=== PATIENT | male | born 2000 | race Two or more races ===

== ENCOUNTER → 2019-03-01 | Outpatient (REF) | payer OTHER | LOC: M SFHCLERA 14:14 | PROVIDERS: ATTEND Physician Assistant | DX: J02.9 Acute pharyngitis, unspecified (principal) ==

== ENCOUNTER 2019-10-03 10:01 | Inpatient (IN) | payer OTHER, SELFPAY ==
[~2019-10-03] VITALS: Ht 177.8 cm; Wt 88.3 kg
[2019-10-03] MEDS ORDERED: ISOVUE-370 76% 100ML VIAL As Ordered ONE (10:41)
[2019-10-03 10:45] LABS: HEMATOCRIT 46.1 % (42.0-52.0); HEMOGLOBIN 15.2 g/dl (13.5-17.5); MEAN CORPUSCULAR HEMOGLOBIN 28.7 pg (27.0-33.0); PLATELET COUNT, AUTOMATED 282 10^3/uL (150-450); WHITE BLOOD COUNT 11.3 10^3/uL (4.0-10.0)
[2019-10-03 11:21] LABS: ALBUMIN 4.1 GM/DL (3.2-5.2); ALT/SGPT 25 U/L (12-78); BILIRUBIN,DIRECT 0.2 MG/DL (0.0-0.2); BILIRUBIN,TOTAL 0.6 MG/DL (0.2-1.0); SALICYLATE LEVEL < 1.7 MG/DL (5.0-30.0); TOTAL PROTEIN 8.3 GM/DL (6.4-8.2)
[2019-10-03 11:22] LABS: ACETAMINOPHEN LEVEL < 2.0 UG/ML (10.0-30.0); ETHYL ALCOHOL (ETHANOL) < 0.003 % (0.000-0.010)
[2019-10-03 12:01] LABS: AMPHETAMINES LEVEL URINE NEGATIVE (NEGATIVE); BARBITURATES URINE NEGATIVE (NEGATIVE); BENZODIAZEPINES URINE NEGATIVE (NEGATIVE); CANNABINOIDS URINE POSITIVE (NEGATIVE); COCAINE METABOLITE URINE NEGATIVE (NEGATIVE); METHADONE URINE NEGATIVE (NEGATIVE); OPIATES URINE NEGATIVE (NEGATIVE); PHENCYCLIDINE URINE NEGATIVE (NEGATIVE)
--- NOTE | 2019-10-03 16:06 | ECGEPIP ---
[facility] - ED Test Date: 2019-10-03 Pat Name: GLEN DELGADO Department: Room: - Gender: Male [employer] Manager: : 2000 Requested By: Dasia Medina Order Number: [id number] Reading MD: Dasia Medina Measurements Intervals [place] Rate: 90 P: 33 HI: 148 QRS: 11 QRSD: 105 T: -2 QT: 346 QTc: 425 Interpretive Statements SINUS RHYTHM INCOMPLETE RIGHT BUNDLE BRANCH BLOCK MINIMAL VOLTAGE CRITERIA FOR LVH, CONSIDER NORMAL VARIANT NONSPECIFIC ST T WAVE CHANGES NO PRIOR ECG FOR COMPARISON Electronically Signed on 10-03-2019 16:05:59 EDT by Dasia Medina
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
[2019-10-04] MEDS ORDERED: ACETAMINOPHEN TAB 650MG DOSE (2X325MG) PO PRN (18:45)
[2019-10-04] MEDS ORDERED: MOM 30ML SUSPENSION UDC PO PRN (18:45)
[2019-10-04] MEDS ORDERED: traZODone 50 MG TAB PO PRN (18:45)
[2019-10-04] MEDS ORDERED: MAALOX 30 ML SUSP *UDC PO PRN (18:45)
[2019-10-04 21:40] VITALS: BP 131/66
[2019-10-05 06:56] VITALS: BP 117/69
--- NOTE | 2019-10-05 08:45 | HPEPDOC ---
[facility] Medical History & Physical Date of Admission Oct 04, 2019 Date of Service: Oct 05, 2019 History and Physical CHIEF COMPLAINT: Suicidal ideation HISTORY OF PRESENT ILLNESS: 19 yo male admitted to [facility] for suicide attempt. PAST MEDICAL HISTORY: Denies ALLERGIES: Please see below. REVIEW OF SYSTEMS: Negative except as per HPI. HOME MEDICATIONS: Please see below. PHYSICAL EXAMINATION: VITAL SIGNS: See below LABORATORY DATA: See below. MICROBIOLOGY: Please see below. ASSESSMENT: 19 yo male admitted to [facility] for suicidal ideation/attempt, denies any PMHx. #suicidal ideation/attempt - as per primary team - psychiatry Vital Signs Vital Signs Date Time Temp Pulse Resp B/P (MAP) Pulse Ox O2 Delivery O2 Flow Rate FiO2 10/05/19 06:56 98.3 48 16 117/69 (85) Room Air 10/04/19 21:40 96 Home Medications No Active Prescriptions or Reported Meds Allergies Coded Allergies: No Known Allergies (Verified Allergy, Unknown, 10/03/19) A-FIB/CHADSVASC A-FIB History Current/History of A-Fib/PAF?: No TIA CHAVEZ MD Oct 05, 2019 08:45
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
[2019-10-05] MEDS ORDERED: SERTRALINE HCL 25 MG TABLET PO ONE (11:15)
[2019-10-05 16:00] VITALS: BP 118/72
[2019-10-06 06:05] VITALS: BP 143/68
--- NOTE | 2019-10-06 08:23 | MHIPNPDOC ---
[facility] Progress Note Progress Note DATE OF SERVICE: 10/06/19 HPI: Glen presents today for a follow-up visit. Glen reports he feels more positive but with active and racing thoughts. He mentions he tried to socialize yesterday and has attended groups. Glen reports he had a stomachache and then was hungry throughout the night. He mentions he is looking forward to going home and that his medication gave him a new perspective. Glen denies having any suicidal tendencies and mentions he was thinking about changing his life once he is released from the hospital. MEDICATIONS: He will be starting his second dose of Zoloft. Objective Appearance: Well groomed. Well nourished. Behavior: Engaged. Cooperative with good eye contact. Pleasant. Affect: Appropriate to context. Full range. Mood: Appropriately reactive. Generally good. Euthymic. Speech: Normal volume. Normal rate. Motor: No gross motor abnormalities. Cognition: Alert, Attentive, and Oriented to person, place, time. Memory: No formal testing. No gross abnormalities of short or buttermaker continuous churn memory noted during interview. Thought Form: Linear and goal directed. Thought Content: No evidence of aggressive or homicidal ideation. No thoughts of self harm. No evidence of suicidal ideation. No evidence of delusions. Perception: No perceptual abnormalities noted. Judgement: intact as evidenced by decision making in the recent past. Insight: good insight into symptoms and treatment options. Assessment F33.2 Major depressive disorder, recurrent severe without psychotic features Plan Continue inaudible 25 mg daily. Potential discharge tomorrow if patient continues to improve and does not meet involuntary criteria at that time. Vital Signs Vital Signs Date Time Temp Pulse Resp B/P (MAP) Pulse Ox O2 Delivery O2 Flow Rate FiO2 10/06/19 06:05 97.7 72 16 143/68 (93) 96 Room Air Current Medications Current Medications Medications (Trade) Dose Ordered Sig/Natalee Route PRN Reason Start Time Stop Time Status Last Admin Dose Admin Acetaminophen (Tylenol Tab) 650 mg Q6HP PRN PO HEADACHE or DISCOMFORT 10/04/19 18:45 Al Hydrox/Mg Hydrox/Simethicone (Mylanta) 30 ml Q4HP PRN PO HEARTBURN/INDIGESTION 10/04/19 18:45 Home Med (Med Rec Complete!) ASDIRECTED XX 10/04/19 17:00 10/04/19 16:55 DC Home Med (Med Rec Complete!) ASDIRECTED XX 10/04/19 21:00 10/04/19 20:51 DC Magnesium Hydroxide (Milk Of Magnesia) 30 ml DAILYPRN PRN PO CONSTIPATION 10/04/19 18:45 Sertraline HCl (Zoloft) 25 mg DAILY PO 10/06/19 09:00 Trazodone HCl (Desyrel) 50 mg QHSP PRN PO INSOMNIA 10/04/19 18:45 Allergies Coded Allergies: No Known Allergies (Verified Allergy, Unknown, 10/03/19) GLEN KERNS DO Oct 06, 2019 08:23
[2019-10-06] MEDS: SERTRALINE HCL 25 MG TABLET PO SCH (09:07)
[2019-10-06 17:39] VITALS: BP 134/82
[2019-10-07 06:00] VITALS: BP 127/61
[2019-10-07] MEDS: SERTRALINE HCL 25 MG TABLET PO SCH (08:34)
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
[2019-10-07] MEDS ORDERED: SERT25TA21 PO (10:37)
== END 2019-10-07 13:45 | disposition home or self-care (01) | DRG 751 ==
LOC: M ED 10:01 → M ED INP 10-04 18:31 → M PSY 10-04 21:30
PROVIDERS: ADMIT Psychiatry & Neurology Addiction Medicine; ATTEND Psychiatry & Neurology Addiction Medicine
DX: F33.2 Major depressive disorder, recurrent severe without psychotic features (principal)